=== PATIENT | male | born 1995 | race Hispanic/Latino ===

== ENCOUNTER 2017-08-26 01:25 | Emergency (ER) | payer SELFPAY ==
[2017-08-26] MEDS ORDERED: HYDROXYZINE HCL 25 MG TABLET ONE (01:48)
== END 2017-08-26 01:56 | disposition home or self-care (01) ==
LOC: EDH 01:25
DX: F41.9 Anxiety disorder, unspecified (principal); I10 Essential (primary) hypertension; Z72.0 Tobacco use